=== PATIENT | female | born 1990 | race Caucasian/White ===

== ENCOUNTER 2021-08-21 07:46 | Emergency (ER) | payer MEDICAID ==
[~2021-08-21] VITALS: Ht 180.3 cm; Wt 85.7 kg
--- NOTE | 2021-08-21 07:46 | NUR ---
PT [id number] PER EMS, HEARING VOICES, APPEARS ANXIOUS. PT IS AAOX4, NOT IN RESPIRATORY DISTRESS, V/S STABLE, KEPT RESTED AND COMFORTABLE. WILL CONTINUE TO MONITOR. SITTER AT BEDSIDE.
--- NOTE | 2021-08-21 08:47 | NUR ---
PT STATED THAT SHE'S HEARING VOICES AND TELLING HER TO COMMIT SUICIDE. DR.LUTSKY ANDERSON.
--- NOTE | 2021-08-21 08:53 | NUR ---
SEEN AND EXAMINED BY .
[2021-08-21 09:10] LABS: BILIRUBIN,URINE NEGATIVE (NEGATIVE); COLOR,URINE YELLOW (YELLOW); LEUKOCYTE ESTERASE ,URINE NEGATIVE (NEGATIVE); NITRITE, URINE NEGATIVE (NEGATIVE); PH,URINE 5.5 (5.0-8.0); PROTEIN,URINE NEGATIVE (NEGATIVE); UGLUCOSE NEGATIVE (NEGATIVE); UROBILINOGEN,URINE 0.2 EU/dL (0.2)
[2021-08-21 09:20] LABS: BASOPHILS # (AUTO) 0.1 K/uL (0.0-0.2); BASOPHILS % (AUTO) 0.6 % (0.0-2.0); EOSINOPHILS % (AUTO) 0.4 % (0.0-6.0); HEMATOCRIT 38 % (33-45); HEMOGLOBIN 12.9 g/dL (11.5-14.8); LYMPHOCYTES # (AUTO) 2.2 K/uL (0.8-4.8); LYMPHOCYTES % (AUTO) 20.9 % (20.0-44.0); MEAN CORPUSCULAR HGB CONC 34 g/dl (31.0-36.0); MEAN CORPUSCULAR VOLUME 88 fL (82-100); MONOCYTES # (AUTO) 0.9 K/uL (0.1-1.30); MONOCYTES % (AUTO) 8.1 % (2.0-12.0); NEUTROPHILS # (AUTO) 7.4 K/uL (1.8-8.9); PLATELET COUNT (AUTO) 271 K/uL (150-450); RED BLOOD CELL COUNT(AUTO) 4.36 MIL/uL (4.0-5.2); WHITE BLOOD COUNT (AUTO) 10.6 K/uL (4.3-11.0)
[2021-08-21 09:21] LABS: BACTERIA,URINE Rare /HPF (None Seen); SQUAMOUS EPITHELIAL CELL,UR Few /HPF (None Seen); WBC,URINE NONE SEEN /HPF (0-3)
[2021-08-21 09:37] LABS: ALANINE AMINOTRANSFERASE 17 U/L (12-78); ALCOHOL, BLOOD < 3 mg/dL (0-0); ALKALINE PHOSPHATASE 77 U/L (46-116); ASPARTATE AMINOTRANSFERASE 12 U/L (15-37); BILIRUBIN,DIRECT 0.1 mg/dL (0.0-0.2); BILIRUBIN,TOTAL 0.5 mg/dL (0.2-1.0); CALCIUM, SERUM 9.5 mg/dL (8.5-10.1); CARBON DIOXIDE 21 mmol/L (21-32); CHLORIDE 105 mmol/L (98-107); CREATININE 0.7 mg/dL (0.6-1.3); GLUCOSE 103 mg/dL (74-106); POTASSIUM 3.7 mmol/L (3.5-5.1); SODIUM SERUM 136 mmol/L (136-145); TOTAL PROTEIN, SERUM 7.7 g/dL (6.4-8.2); UREA NITROGEN, BLOOD 9 mg/dL (7-18)
[2021-08-21 09:44] LABS: ACETAMINOPHEN < 1 ug/ml (10-30)
[2021-08-21] MEDS ORDERED: OLANZAPINE 10 MG VIAL IM ONE ×2 (10:46→11:00)
[2021-08-21] MEDS ORDERED: OLANZAPINE ZYDIS 5 MG TAB.RAPDIS PO ONE (11:00)
--- NOTE | 2021-08-22 00:52 | NUR ---
patient was evaluted. patient agreed to voluntary placement. patient's clinicals where faxed to Monse JACKSON
--- NOTE | 2021-08-22 02:09 | NUR ---
PT IS ACCEPTED AT [facility] UNDER THE CARE OF DR. SWAN. CALL [phone] FOR REPORT. LOOK AVANI TIM, CHARGE NURSE
--- NOTE | 2021-08-22 02:16 | NUR ---
[facility] ETA: 75-90MIN
[2021-08-22 03:17] VITALS: BP 117/65
--- NOTE | 2021-08-22 04:15 | NUR ---
REPORT GIVEN TO SARI TIM FOR NATALIA AT THE [facility]
--- NOTE | 2021-08-22 04:17 | NUR ---
[facility] [address] AT BEDSIDE FOR PT TO [facility]. PT IS IN STABLE CONDITION FOR TRANSPORT. NAD NOTED. PT IS AMBULATORY.
--- NOTE | 2021-08-22 04:28 | NUR ---
PT WAS TRANSFERRED TO [facility] IN STABLE CONDITION
== END 2021-08-22 04:28 ==
LOC: ER 07:49
DX: R45.851 Suicidal ideations (principal); Z20.822 Contact with and (suspected) exposure to COVID-19; F29 Unspecified psychosis not due to a substance or known physiological condition; Z59.02 Unsheltered homelessness
CPT/HCPCS: 36415; 80048; 80076; 80143; 80307; 80320; 81001; 84703; 85025; 87426; 96372; 99285; C9803; J3490; G0480